=== PATIENT | male | born 1985 | race Caucasian/White ===

== ENCOUNTER 2021-04-25 18:53 | Observation (INO) | payer BC ==
[~2021-04-25] VITALS: Ht 175.3 cm; Wt 77.3 kg
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
[2021-04-25 20:03] LABS: BASOPHILS 0.2 % (0-2); EOSINOPHILS 0.1 % (0-7); HEMATOCRIT 42.3 % (42.0-54.0); LYMPHOCYTES 6.5 % (15-50); MCH 27.9 pg (26.0-34.0); MCHC 33.1 g/dL (31.0-37.0); MCV 84.2 fL (80.0-100.0); MONOCYTES 6.4 % (2-11); NEUTROPHILS 86.8 % (40-80); PLATELET COUNT 234 10x3/uL (130-400); RBC 5.02 10x6/uL (4.20-6.10); RDW 14.1 % (11.5-14.5); WBC 14.6 10x3/uL (4.8-10.8)
[2021-04-25 20:14] LABS: APTT 26.6 SECONDS (22.8-39.4); INR 1.26 (0.85-1.17); PROTIME 14.6 SECONDS (11.6-15.0)
[2021-04-25 20:15] LABS: CALC OSMOLALITY 283 mosm/kg (275-300); CALCIUM 8.8 mg/dL (8.5-10.1); CHLORIDE - SERUM 105 mmol/L (98-107); CREATININE - SERUM 1.1 mg/dL (0.6-1.3); GLUCOSE 101 mg/dL (74-106); POTASSIUM - SERUM 3.5 mmol/L (3.5-5.1); SODIUM 141 mmol/L (136-145); UREA NITROGEN 20 mg/dL (7-18); eGFR NON AFRICAN AMERICAN 82 mL/min (90-120)
[2021-04-25 20:20] LABS: ALBUMIN 4.3 g/dL (3.4-5.0); ALKALINE PHOSPHATASE 72 U/L (30-120); ALT (SGPT) 46 U/L (10-68); BILIRUBIN - TOTAL 0.83 mg/dL (0.2-1.3); LIPASE 93 U/L (73-393)
[2021-04-25 20:31] LABS: BILIRUBIN NEGATIVE (NEGATIVE); KETONE NEGATIVE mg/dL (< 1+); NITRITE NEGATIVE (NEGATIVE); PH 5.5 (5.0-8.0); UROBILINOGEN NORMAL mg/dL (< 2)
[2021-04-25 21:00] VITALS: BP 120/65
[2021-04-26] VITALS (11 sets, daily range): BP systolic 102–153; BP diastolic 54–113; Ht 175.3 cm; Wt 77.3 kg
[2021-04-26 04:19] LABS: BASOPHILS 0.4 % (0-2); EOSINOPHILS 0 % (0-7); HEMATOCRIT 42.2 % (42.0-54.0); HEMOGLOBIN 13.9 g/dL (13.5-17.5); LYMPHOCYTES 6.4 % (15-50); MCH 27.7 pg (26.0-34.0); MCV 84.1 fL (80.0-100.0); MEAN PLATELET VOLUME 8.1 fL (7.4-10.4); MONOCYTES 6.6 % (2-11); NEUTROPHILS 86.6 % (40-80); PLATELET COUNT 251 10x3/uL (130-400); RBC 5.02 10x6/uL (4.20-6.10); RDW 14.1 % (11.5-14.5); WBC 12.1 10x3/uL (4.8-10.8)
[2021-04-26 04:29] LABS: INR 1.21 (0.85-1.17); PROTIME 14.2 SECONDS (11.6-15.0)
[2021-04-26 04:35] LABS: CALC OSMOLALITY 288 mosm/kg (275-300); CALCIUM 8.5 mg/dL (8.5-10.1); CARBON DIOXIDE 24.8 mmol/L (21.0-32.0); CHLORIDE - SERUM 106 mmol/L (98-107); CREATININE - SERUM 1.1 mg/dL (0.6-1.3); GLUCOSE 147 mg/dL (74-106); MAGNESIUM - SERUM 1.8 mg/dL (1.8-2.4); PHOSPHOROUS 3.2 mg/dL (2.5-4.9); POTASSIUM - SERUM 3.9 mmol/L (3.5-5.1); SODIUM 142 mmol/L (136-145); UREA NITROGEN 21 mg/dL (7-18); eGFR NON AFRICAN AMERICAN 82 mL/min (90-120)
--- NOTE | 2021-04-26 06:39 | NUR ---
PT C/O HEADACHE AND STATES IT HAS BEEN WORSENING ALL NIGHT. DR. BRASWELL NOTIFIED AND ORDER OBTAINED TO RESCAN HEAD.
--- NOTE | 2021-04-26 08:40 | NUR ---
CONSENT FOR PROCEDURE, ANESTHESIA AND BLOOD TRANSFUSION SIGNED AND WITNESSED. C/O LEFT ANKLE PAIN 06/21. MEDICATED WITH DEMEROL 25MG IVP. PATIENT REFUSED FULL 50MG DOSE.
--- NOTE | 2021-04-26 11:15 | NUR ---
PRE-OP MEDS GIVEN. TO OR VIA STRETCHER WITH OR STAFF AND .
--- NOTE | 2021-04-26 15:35 | MORECARE ---
CASE MANAGEMENT DISCHARGE SUMMARY PATIENT: MALIKA JOHNSON UNIT: [id number] ADM DATE: 04/25/21 AGE: 35 : 87 SEX: M ROOM/BED: D.2233 AUTHOR: ANNA CHAPA PHYSICIAN: REFERRING PHYSICIAN: BRANDO BRASWELL MD DATE OF SERVICE: 04/26/21 Case Management Discharge Planning Summary COMMENTS ENTERED DATE: 04/26/21 15:31 CT COMMENT TYPE: Discharge Planning REVIEWER: Meek Dior Telephone conversation with patient's spouse, Ladan Johnson, at 1524 on 26 April 2021 to complete DC plan and needs. Mrs. Johnson stated that their home is safe and has electricity and running water. Mrs. Johnson stated that she has no problems paying for medications and she fills her medications at [facility] in [place], [place]. Mrs. Johnson stated that the patient's primary care physician is Dr. Rodriguez. At discharge, the patient plans to return Home and feels this is a safe discharge. CM discussed availability of home health, rehab services, and medical equipment. Mrs. Johnson declined HHS, SNF, IPR, and DME. Mrs. Johnson voiced no other needs at this time and is satisfied with DC plan. Transportation provider at discharge will be with Mrs. Johnson. CM will continue to follow and will assist as needed with dc plans/needs. DCP REVIEW SUMMARY ANTICIPATED D/C DATE: EXPECTED LOS : CASE STATUS: DCP Initiated INITIAL REVIEW: 04/25/2021 INITIAL REVIEWER: Meek Dior FINAL DISCHARGE DISPOSITION: : FINAL REVIEWER: FINAL REVIEW DATE: DCP Focus Questions & Answers DCP Evaluation QUESTION: ANSWER Patient gives permission to discuss discharge plans with: (name, relationship and number) : spouse, Ladan Johnson, Patient's ability to cope with chronic illness : d. No chronic illness Patient's current cognitive status: : *Oriented to person, place, situation, time and present Family / Caregiver's ability to cope with chronic illness: : a. Adequate (ability to meet patient's medical needs, ensures patient attends medical appts.) Patient and/or caregiver agree upon recommended discharge plan? : Yes Physical Status: : Independent with ADL's Family / Caregiver's ability to cope with chronic illness: : a. Adequate (ability to meet patient's medical needs, ensures patient attends medical appts.) Functional screen assessment: : Basic needs can adequately be met by self Does the patient have the ability to pay for or attain post discharge needs / services? : Yes Living Arrangements: : Home with Spouse/Significant Other Is there a likelihood that the patient will require additional services to return to the preadmission environment? : No Equipment needed for post hospitalization: : None Baseline cognitive status: : *Oriented to person, place, situation, time and present Patient with capacity for self-care or can be cared for in same environment as prior to hospitalization? : Yes Physical environment modification needed / anticipated for discharge: : No Medication Management: : Patient states can afford medications Medication Management: : Patient states can read and understand medication labels Pharmacy name(s): : [facility] Does Patient have transportation to get home and to follow-up medical appointments when discharged from the hospital? : Yes Would patient like to participate in any Care Coordination programs (if applicable): : Not applicable Does the patient have electricity at home? : Yes Does the patient have running water in their house? : Yes Equipment in use: : None Mental health screen: : No mental health history DCP Re-evaluation QUESTION: ANSWER Would patient like to participate in any Care Coordination programs (if applicable): : Not applicable PATIENT: MALIKA JOHNSON ENCOUNTER: [id number] MEDICAL RECORD#: [id number] ADMISSION DATE: 04/25/2021 DISCHARGE DATE: ATTENDING MD: BRANDO GARVEY : AGE: 35 MARITAL STATUS: M DC PLAN ID: [id number] FACILITY: [facility] PRINTED ON: 04/26/21 15:35 CT All edits/amendments must be made on the electronic document DICTATION DATE: 04/26/211534 JAVA DEVELOPER ANALYST: EDWARD 04/26/211534 RPT#: [id number] DC DATE: STATUS: ADM IN [facility] [address] [place] [address] END OF REPORT
--- NOTE | 2021-04-26 18:00 | MORECARE ---
CASE MANAGEMENT DISCHARGE SUMMARY PATIENT: MALIKA JOHNSON UNIT: [id number] ADM DATE: 04/25/21 AGE: 35 : 87 SEX: M ROOM/BED: D.2233 AUTHOR: ANNA CHAPA PHYSICIAN: REFERRING PHYSICIAN: BRANDO BRASWELL MD DATE OF SERVICE: 04/26/21 Case Management Discharge Planning Summary COMMENTS ENTERED DATE: 04/26/21 15:31 CT COMMENT TYPE: Discharge Planning REVIEWER: Meek Dior Telephone conversation with patient's spouse, Ladan Johnson, at 1524 on 26 April 2021 to complete DC plan and needs. Mrs. Johnson stated that their home is safe and has electricity and running water. Mrs. Johnson stated that she has no problems paying for medications and she fills her medications at [facility] in [place], [place]. Mrs. Johnson stated that the patient's primary care physician is Dr. Rodriguez. At discharge, the patient plans to return Home and feels this is a safe discharge. CM discussed availability of home health, rehab services, and medical equipment. Mrs. Johnson declined HHS, SNF, IPR, and DME. Mrs. Johnson voiced no other needs at this time and is satisfied with DC plan. Transportation provider at discharge will be with Mrs. Johnosn. CM will continue to follow and will assist as needed with dc plans/needs. Appended by Meek Dior on 04/26/2021 17:53 CDT: CM spoke with Mrs. Johnson regarding further needs. Mrs. Johnson stated that she spoke with the surgeon and feels that she will need a wheelchair for her at discharge. Mrs. Johnson stated that she thinks her mother has one that they can use but will contact CM department early tomorrow if one is needed. CM informed the Mrs. Johnson that Wheelchairs require medical necessity verbiage that will need to be coordinated with the surgeon, so early contact with CM department would be helpful. CM will continue to follow and will assist as needed with dc plans/needs. DCP REVIEW SUMMARY ANTICIPATED D/C DATE: EXPECTED LOS : CASE STATUS: DCP Initiated INITIAL REVIEW: 04/25/2021 INITIAL REVIEWER: Meek Dior FINAL DISCHARGE DISPOSITION: : FINAL REVIEWER: FINAL REVIEW DATE: TNP Focus Questions & Answers DCP Evaluation QUESTION: ANSWER Patient gives permission to discuss discharge plans with: (name, relationship and number) : spouse, Ladan Johnson, Patient's ability to cope with chronic illness : d. No chronic illness Patient's current cognitive status: : *Oriented to person, place, situation, time and present Family / Caregiver's ability to cope with chronic illness: : a. Adequate (ability to meet patient's medical needs, ensures patient attends medical appts.) Patient and/or caregiver agree upon recommended discharge plan? : Yes Physical Status: : Independent with ADL's Family / Caregiver's ability to cope with chronic illness: : a. Adequate (ability to meet patient's medical needs, ensures patient attends medical appts.) Functional screen assessment: : Basic needs can adequately be met by self Does the patient have the ability to pay for or attain post discharge needs / services? : Yes Living Arrangements: : Home with Spouse/Significant Other Is there a likelihood that the patient will require additional services to return to the preadmission environment? : No Equipment needed for post hospitalization: : None Baseline cognitive status: : *Oriented to person, place, situation, time and present Patient with capacity for self-care or can be cared for in same environment as prior to hospitalization? : Yes Physical environment modification needed / anticipated for discharge: : No Medication Management: : Patient states can afford medications Medication Management: : Patient states can read and understand medication labels Pharmacy name(s): : [facility] Does Patient have transportation to get home and to follow-up medical appointments when discharged from the hospital? : Yes Would patient like to participate in any Care Coordination programs (if applicable): : Not applicable Does the patient have electricity at home? : Yes Does the patient have running water in their house? : Yes Equipment in use: : None Mental health screen: : No mental health history DCP Re-evaluation QUESTION: ANSWER Would patient like to participate in any Care Coordination programs (if applicable): : Not applicable PATIENT: MALIKA JOHNSON ENCOUNTER: [id number] MEDICAL RECORD#: [id number] ADMISSION DATE: 04/25/2021 DISCHARGE DATE: ATTENDING MD: BRANDO GARVEY : AGE: 35 MARITAL STATUS: M DC PLAN ID: [id number] FACILITY: [facility] PRINTED ON: 04/26/21 18:00 CT All edits/amendments must be made on the electronic document DICTATION DATE: 04/26/211799 WAREHOUSE UNLOADER: EDWARD 04/26/211799 RPT#: [id number] DC DATE: STATUS: ADM IN [facility] [address] [place] [address] END OF REPORT
--- NOTE | 2021-04-26 18:30 | NUR ---
ATE MOST OF SUPPER. DENIES NEEDS. VSS. NO CHANGES NOTED. AT BEDSIDE.
--- NOTE | 2021-04-26 19:45 | MORECARE ---
CASE MANAGEMENT DISCHARGE SUMMARY PATIENT: MALIKA JOHNSON UNIT: [id number] ADM DATE: 04/25/21 AGE: 35 : 87 SEX: M ROOM/BED: D.2233 AUTHOR: ANNA CHAPA PHYSICIAN: REFERRING PHYSICIAN: BRANDO BRASWELL MD DATE OF SERVICE: 04/26/21 Case Management Discharge Planning Summary COMMENTS ENTERED DATE: 04/26/21 15:31 CT COMMENT TYPE: Discharge Planning REVIEWER: Meek Dior Telephone conversation with patient's spouse, Ladan Johnson, at 1524 on 26 April 2021 to complete DC plan and needs. Mrs. Johnson stated that their home is safe and has electricity and running water. Mrs. Johnson stated that she has no problems paying for medications and she fills her medications at [facility] in [place], [place]. Mrs. Johnson stated that the patient's primary care physician is Dr. Rodriguez. At discharge, the patient plans to return Home and feels this is a safe discharge. CM discussed availability of home health, rehab services, and medical equipment. Mrs. Johnson declined HHS, SNF, IPR, and DME. Mrs. Johnson voiced no other needs at this time and is satisfied with DC plan. Transportation provider at discharge will be with Mrs. Johnson. CM will continue to follow and will assist as needed with dc plans/needs. Appended by Meek Dior on 04/26/2021 17:53 CDT: CM spoke with Mrs. Johnson regarding further needs. Mrs. Johnson stated that she spoke with the surgeon and feels that she will need a wheelchair for her at discharge. Mrs. Johnson stated that she thinks her mother has one that they can use but will contact CM department early tomorrow if one is needed. CM informed the Mrs. Johnson that Wheelchairs require medical necessity verbiage that will need to be coordinated with the surgeon, so early contact with CM department would be helpful. CM will continue to follow and will assist as needed with dc plans/needs. DCP REVIEW SUMMARY ANTICIPATED D/C DATE: EXPECTED LOS : CASE STATUS: DCP Initiated INITIAL REVIEW: 04/25/2021 INITIAL REVIEWER: Meek Dior FINAL DISCHARGE DISPOSITION: : FINAL REVIEWER: FINAL REVIEW DATE: WYP Focus Questions & Answers DCP Evaluation QUESTION: ANSWER Patient gives permission to discuss discharge plans with: (name, relationship and number) : spouse, Ladan Johnson, Patient's ability to cope with chronic illness : d. No chronic illness Patient's current cognitive status: : *Oriented to person, place, situation, time and present Family / Caregiver's ability to cope with chronic illness: : a. Adequate (ability to meet patient's medical needs, ensures patient attends medical appts.) Patient and/or caregiver agree upon recommended discharge plan? : Yes Physical Status: : Independent with ADL's Family / Caregiver's ability to cope with chronic illness: : a. Adequate (ability to meet patient's medical needs, ensures patient attends medical appts.) Functional screen assessment: : Basic needs can adequately be met by self Does the patient have the ability to pay for or attain post discharge needs / services? : Yes Living Arrangements: : Home with Spouse/Significant Other Is there a likelihood that the patient will require additional services to return to the preadmission environment? : No Equipment needed for post hospitalization: : None Baseline cognitive status: : *Oriented to person, place, situation, time and present Patient with capacity for self-care or can be cared for in same environment as prior to hospitalization? : Yes Physical environment modification needed / anticipated for discharge: : No Medication Management: : Patient states can afford medications Medication Management: : Patient states can read and understand medication labels Pharmacy name(s): : [email or web address] Does Patient have transportation to get home and to follow-up medical appointments when discharged from the hospital? : Yes Would patient like to participate in any Care Coordination programs (if applicable): : Not applicable Does the patient have electricity at home? : Yes Does the patient have running water in their house? : Yes Equipment in use: : None Mental health screen: : No mental health history DCP Re-evaluation QUESTION: ANSWER Would patient like to participate in any Care Coordination programs (if applicable): : Not applicable PATIENT: MALIKA JOHNSON ENCOUNTER: [id number] MEDICAL RECORD#: [id number] ADMISSION DATE: 04/25/2021 DISCHARGE DATE: ATTENDING MD: BRANDO GARVEY : AGE: 35 MARITAL STATUS: M DC PLAN ID: [id number] FACILITY: [facility] PRINTED ON: 04/26/21 19:44 CT All edits/amendments must be made on the electronic document DICTATION DATE: 04/26/211943 PACKING MACHINE TENDER: EDWARD 04/26/211943 RPT#: [id number] DC DATE: STATUS: ADM IN [facility] [address] [place] [address] END OF REPORT
--- NOTE | 2021-04-26 20:00 | NUR ---
ALERT RESTING IN BED, REPORTS NUMBNESS TO RIGHT FOOT, TOES PINK AND WARM, CHARLINE WRAP CAST IN PLACE ELEVATED ON PILLOWS, SEE SHIFT ASSESSMENT, CALL LIGHT IN REACH
[2021-04-27] VITALS: BP 114/53
[2021-04-27 04:00] VITALS: BP 122/78
[2021-04-27 06:13] LABS: HEMATOCRIT 37.6 % (42.0-54.0); HEMOGLOBIN 12.4 g/dL (13.5-17.5); MCH 28.2 pg (26.0-34.0); MCHC 32.9 g/dL (31.0-37.0); MCV 85.6 fL (80.0-100.0); MEAN PLATELET VOLUME 8.4 fL (7.4-10.4); RBC 4.4 10x6/uL (4.20-6.10); RDW 14.2 % (11.5-14.5); WBC 10.2 10x3/uL (4.8-10.8)
[2021-04-27 08:06] VITALS: BP 110/49
--- NOTE | 2021-04-27 08:20 | NUR ---
PT LYING IN BED. STATED PAIN IN BETTER. IV CDI. ALL NEEDS MET AT THIS TIME. CLWR.
[2021-04-27 11:05] LABS: UDS - AMPHET NEGATIVE QUAL (NEGATIVE); UDS - BARB NEGATIVE QUAL (NEGATIVE); UDS - BENZO POSITIVE QUAL (NEGATIVE); UDS - COCAINE NEGATIVE QUAL (NEGATIVE); UDS - OPIATE POSITIVE QUAL (NEGATIVE); UDS - PCP NEGATIVE QUAL (NEGATIVE); UDS - THC NEGATIVE QUAL (NEGATIVE)
[2021-04-27 12:36] VITALS: BP 125/70
--- NOTE | 2021-04-27 14:27 | NUR ---
PT SITTING IN CHAIR AT BEDSIDE. REQUESTED TO BE PUT BACK IN BED. NOW RESTING IN BED. IV CDI, CLWR.
--- NOTE | 2021-04-27 15:30 | MORECARE ---
CASE MANAGEMENT DISCHARGE SUMMARY PATIENT: MALIKA JOHNSON UNIT: [id number] ADM DATE: 04/25/21 AGE: 35 : 89 SEX: M ROOM/BED: D.2233 AUTHOR: SAMMI,DOC PHYSICIAN: REFERRING PHYSICIAN: BRANDO BRASWELL MD DATE OF SERVICE: 04/27/21 Case Management Discharge Planning Summary COMMENTS ENTERED DATE: 04/27/21 14:52 CT COMMENT TYPE: Discharge Planning REVIEWER: Concha Yousif CM SPOKE WITH PATIENT AND FAMILY LALO SIGNED [facility] IN [facility]. PATIENT STATES THAT HE DOESN'T WANT TO WAIT FOR DME TO BE DELIVERED. IF IT ISN'T HERE BEFORE HIS D/C PAPERS THEN HE WILL PICK IT UP IN [facility]. CM FAXED RECORDS TO [facility] AND CALLED REGARDING DELIVERY. ENTERED DATE: 04/26/21 15:31 CT COMMENT TYPE: Discharge Planning REVIEWER: Meek Dior Telephone conversation with patient's spouse, Ladan Johnson, at 1524 on 26 April 2021 to complete DC plan and needs. Mrs. Johnson stated that their home is safe and has electricity and running water. Mrs. Johnson stated that she has no problems paying for medications and she fills her medications at [facility] in [place], [place]. Mrs. Johnson stated that the patient's primary care physician is Dr. Rodriguez. At discharge, the patient plans to return Home and feels this is a safe discharge. CM discussed availability of home health, rehab services, and medical equipment. Mrs. Johnson declined HHS, SNF, IPR, and DME. Mrs. Johnson voiced no other needs at this time and is satisfied with DC plan. Transportation provider at discharge will be with Mrs. Johnson. CM will continue to follow and will assist as needed with dc plans/needs. Appended by Meek Dior on 04/26/2021 17:53 CDT: CM spoke with Mrs. Johnson regarding further needs. Mrs. Johnson stated that she spoke with the surgeon and feels that she will need a wheelchair for her at discharge. Mrs. Johnson stated that she thinks her mother has one that they can use but will contact CM department early tomorrow if one is needed. CM informed the Mrs. Johnson that Wheelchairs require medical necessity verbiage that will need to be coordinated with the surgeon, so early contact with CM department would be helpful. CM will continue to follow and will assist as needed with dc plans/needs. DCP REVIEW SUMMARY ANTICIPATED D/C DATE: EXPECTED LOS : CASE STATUS: DCP Initiated INITIAL REVIEW: 04/25/2021 INITIAL REVIEWER: Meek Dior FINAL DISCHARGE DISPOSITION: : FINAL REVIEWER: FINAL REVIEW DATE: DCP Focus Questions & Answers DCP Evaluation QUESTION: ANSWER Patient and/or caregiver agree upon recommended discharge plan? : Yes Family / Caregiver's ability to cope with chronic illness: : a. Adequate (ability to meet patient's medical needs, ensures patient attends medical appts.) Patient's current cognitive status: : *Oriented to person, place, situation, time and present Patient's ability to cope with chronic illness : d. No chronic illness Patient gives permission to discuss discharge plans with: (name, relationship and number) : spouse, Ladan Johnson, Does the patient have the ability to pay for or attain post discharge needs / services? : Yes Functional screen assessment: : Basic needs can adequately be met by self Family / Caregiver's ability to cope with chronic illness: : a. Adequate (ability to meet patient's medical needs, ensures patient attends medical appts.) Physical Status: : Independent with ADL's Equipment needed for post hospitalization: : None Is there a likelihood that the patient will require additional services to return to the preadmission environment? : No Living Arrangements: : Home with Spouse/Significant Other Patient with capacity for self-care or can be cared for in same environment as prior to hospitalization? : Yes Baseline cognitive status: : *Oriented to person, place, situation, time and present Physical environment modification needed / anticipated for discharge: : No Medication Management: : Patient states can read and understand medication labels Medication Management: : Patient states can afford medications Pharmacy name(s): : [facility] Does Patient have transportation to get home and to follow-up medical appointments when discharged from the hospital? : Yes Would patient like to participate in any Care Coordination programs (if applicable): : Not applicable Does the patient have electricity at home? : Yes Does the patient have running water in their house? : Yes Equipment in use: : None Mental health screen: : No mental health history DCP Re-evaluation QUESTION: ANSWER Would patient like to participate in any Care Coordination programs (if applicable): : Not applicable PATIENT: MALIKA JOHNSON ENCOUNTER: [id number] MEDICAL RECORD#: [id number] ADMISSION DATE: 04/25/2021 DISCHARGE DATE: ATTENDING MD: BRANDO GARVEY : AGE: 35 MARITAL STATUS: M DC PLAN ID: [id number] FACILITY: [facility] PRINTED ON: 04/27/21 15:30 CT All edits/amendments must be made on the electronic document DICTATION DATE: 04/27/211529 RN DERMATOLOGY: EDWARD 04/27/211529 RPT#: [id number] DC DATE: STATUS: ADM IN [facility] [address] [place] [address] END OF REPORT
--- NOTE | 2021-04-27 17:06 | MORECARE ---
CASE MANAGEMENT DISCHARGE SUMMARY PATIENT: MALIKA JOHNSON UNIT: [id number] ADM DATE: 04/25/21 AGE: 35 : 89 SEX: M ROOM/BED: D.2233 AUTHOR: SAMMI,DOC PHYSICIAN: REFERRING PHYSICIAN: BRANDO BRASWELL MD DATE OF SERVICE: 04/27/21 Case Management Discharge Planning Summary COMMENTS ENTERED DATE: 04/27/21 14:52 CT COMMENT TYPE: Discharge Planning REVIEWER: Concha Yousif CM SPOKE WITH PATIENT AND FAMILY LALO SIGNED [facility]. PATIENT STATES THAT HE DOESN'T WANT TO WAIT FOR DME TO BE DELIVERED. IF IT ISN'T HERE BEFORE HIS D/C PAPERS THEN HE WILL PICK IT UP IN [facility]. CM FAXED RECORDS TO [facility] AND CALLED REGARDING DELIVERY. ENTERED DATE: 04/26/21 15:31 CT COMMENT TYPE: Discharge Planning REVIEWER: Meek Dior Telephone conversation with patient's spouse, Ladan Johnson, at 1524 on 26 April 2021 to complete DC plan and needs. Mrs. Johnson stated that their home is safe and has electricity and running water. Mrs. Johnson stated that she has no problems paying for medications and she fills her medications at [facility] in [place], [place]. Mrs. Johnson stated that the patient's primary care physician is Dr. Rodriguez. At discharge, the patient plans to return Home and feels this is a safe discharge. CM discussed availability of home health, rehab services, and medical equipment. Mrs. Johnson declined HHS, SNF, IPR, and DME. Mrs. Johnson voiced no other needs at this time and is satisfied with DC plan. Transportation provider at discharge will be with Mrs. Johnson. CM will continue to follow and will assist as needed with dc plans/needs. Appended by Meek Dior on 04/26/2021 17:53 CDT: CM spoke with Mrs. Johnson regarding further needs. Mrs. Johnson stated that she spoke with the surgeon and feels that she will need a wheelchair for her at discharge. Mrs. Johnson stated that she thinks her mother has one that they can use but will contact CM department early tomorrow if one is needed. CM informed the Mrs. Johnson that Wheelchairs require medical necessity verbiage that will need to be coordinated with the surgeon, so early contact with CM department would be helpful. CM will continue to follow and will assist as needed with dc plans/needs. DCP REVIEW SUMMARY ANTICIPATED D/C DATE: EXPECTED LOS : CASE STATUS: DCP Initiated INITIAL REVIEW: 04/25/2021 INITIAL REVIEWER: Meek Dior FINAL DISCHARGE DISPOSITION: : FINAL REVIEWER: FINAL REVIEW DATE: DCP Focus Questions & Answers DCP Evaluation QUESTION: ANSWER Patient and/or caregiver agree upon recommended discharge plan? : Yes Family / Caregiver's ability to cope with chronic illness: : a. Adequate (ability to meet patient's medical needs, ensures patient attends medical appts.) Patient's current cognitive status: : *Oriented to person, place, situation, time and present Patient's ability to cope with chronic illness : d. No chronic illness Patient gives permission to discuss discharge plans with: (name, relationship and number) : spouse, Ladan Johnson, Does the patient have the ability to pay for or attain post discharge needs / services? : Yes Functional screen assessment: : Basic needs can adequately be met by self Family / Caregiver's ability to cope with chronic illness: : a. Adequate (ability to meet patient's medical needs, ensures patient attends medical appts.) Physical Status: : Independent with ADL's Equipment needed for post hospitalization: : None Is there a likelihood that the patient will require additional services to return to the preadmission environment? : No Living Arrangements: : Home with Spouse/Significant Other Patient with capacity for self-care or can be cared for in same environment as prior to hospitalization? : Yes Baseline cognitive status: : *Oriented to person, place, situation, time and present Physical environment modification needed / anticipated for discharge: : No Medication Management: : Patient states can read and understand medication labels Medication Management: : Patient states can afford medications Pharmacy name(s): : [facility] Does Patient have transportation to get home and to follow-up medical appointments when discharged from the hospital? : Yes Would patient like to participate in any Care Coordination programs (if applicable): : Not applicable Does the patient have electricity at home? : Yes Does the patient have running water in their house? : Yes Equipment in use: : None Mental health screen: : No mental health history DCP Re-evaluation QUESTION: ANSWER Would patient like to participate in any Care Coordination programs (if applicable): : Not applicable PATIENT: MALIKA JOHNSON ENCOUNTER: [id number] MEDICAL RECORD#: [id number] ADMISSION DATE: 04/25/2021 DISCHARGE DATE: 04/27/2021 ATTENDING MD: BRANDO GARVEY : AGE: 35 MARITAL STATUS: M DC PLAN ID: [id number] FACILITY: [facility] PRINTED ON: 04/27/21 17:06 CT All edits/amendments must be made on the electronic document DICTATION DATE: 04/27/211705 SIZE MIXER: EDWARD 04/27/211705 RPT#: [id number] DC DATE:04/27/21 STATUS: DIS IN [facility] [address] [place] [address] END OF REPORT
--- NOTE | 2021-04-28 17:04 | MORECARE ---
CASE MANAGEMENT DISCHARGE SUMMARY PATIENT: MALIKA JOHNSON UNIT: [id number] ADM DATE: 04/25/21 AGE: 35 : 89 SEX: M ROOM/BED: D.2233 AUTHOR: SAMMI,DOC PHYSICIAN: REFERRING PHYSICIAN: BRANDO BRASWELL MD DATE OF SERVICE: 04/28/21 Case Management Discharge Planning Summary COMMENTS ENTERED DATE: 04/27/21 14:52 CT COMMENT TYPE: Discharge Planning REVIEWER: Concha Yousif CM SPOKE WITH PATIENT AND FAMILY LALO SIGNED [facility] IN [facility]. PATIENT STATES THAT HE DOESN'T WANT TO WAIT FOR DME TO BE DELIVERED. IF IT ISN'T HERE BEFORE HIS D/C PAPERS THEN HE WILL PICK IT UP IN [facility]. CM FAXED RECORDS TO [facility] AND CALLED REGARDING DELIVERY. ENTERED DATE: 04/26/21 15:31 CT COMMENT TYPE: Discharge Planning REVIEWER: Meek Dior Telephone conversation with patient's spouse, Ladan Johnson, at 1524 on 26 April 2021 to complete DC plan and needs. Mrs. Johnson stated that their home is safe and has electricity and running water. Mrs. Johnson stated that she has no problems paying for medications and she fills her medications at [facility] in [place], [place]. Mrs. Johnson stated that the patient's primary care physician is Dr. Rodriguez. At discharge, the patient plans to return Home and feels this is a safe discharge. CM discussed availability of home health, rehab services, and medical equipment. Mrs. Johnson declined HHS, SNF, IPR, and DME. Mrs. Johnson voiced no other needs at this time and is satisfied with DC plan. Transportation provider at discharge will be with Mrs. Johnson. CM will continue to follow and will assist as needed with dc plans/needs. Appended by Meek Dior on 04/26/2021 17:53 CDT: CM spoke with Mrs. Johnson regarding further needs. Mrs. Johnson stated that she spoke with the surgeon and feels that she will need a wheelchair for her at discharge. Mrs. Johnson stated that she thinks her mother has one that they can use but will contact CM department early tomorrow if one is needed. CM informed the Mrs. Johnson that Wheelchairs require medical necessity verbiage that will need to be coordinated with the surgeon, so early contact with CM department would be helpful. CM will continue to follow and will assist as needed with dc plans/needs. DCP REVIEW SUMMARY ANTICIPATED D/C DATE: EXPECTED LOS : CASE STATUS: DCP Initiated INITIAL REVIEW: 04/25/2021 INITIAL REVIEWER: Meek Dior FINAL DISCHARGE DISPOSITION: : FINAL REVIEWER: FINAL REVIEW DATE: DCP Focus Questions & Answers DCP Evaluation QUESTION: ANSWER Patient and/or caregiver agree upon recommended discharge plan? : Yes Family / Caregiver's ability to cope with chronic illness: : a. Adequate (ability to meet patient's medical needs, ensures patient attends medical appts.) Patient's current cognitive status: : *Oriented to person, place, situation, time and present Patient's ability to cope with chronic illness : d. No chronic illness Patient gives permission to discuss discharge plans with: (name, relationship and number) : spouse, Ladan Johnson, Does the patient have the ability to pay for or attain post discharge needs / services? : Yes Functional screen assessment: : Basic needs can adequately be met by self Family / Caregiver's ability to cope with chronic illness: : a. Adequate (ability to meet patient's medical needs, ensures patient attends medical appts.) Physical Status: : Independent with ADL's Equipment needed for post hospitalization: : None Is there a likelihood that the patient will require additional services to return to the preadmission environment? : No Living Arrangements: : Home with Spouse/Significant Other Patient with capacity for self-care or can be cared for in same environment as prior to hospitalization? : Yes Baseline cognitive status: : *Oriented to person, place, situation, time and present Physical environment modification needed / anticipated for discharge: : No Medication Management: : Patient states can read and understand medication labels Medication Management: : Patient states can afford medications Pharmacy name(s): : [facility] Does Patient have transportation to get home and to follow-up medical appointments when discharged from the hospital? : Yes Would patient like to participate in any Care Coordination programs (if applicable): : Not applicable Does the patient have electricity at home? : Yes Does the patient have running water in their house? : Yes Equipment in use: : None Mental health screen: : No mental health history DCP Re-evaluation QUESTION: ANSWER Would patient like to participate in any Care Coordination programs (if applicable): : Not applicable PATIENT: MALIKA JOHNSON ENCOUNTER: [id number] MEDICAL RECORD#: [id number] ADMISSION DATE: 04/25/2021 DISCHARGE DATE: 04/27/2021 ATTENDING MD: BRANDO GARVEY : AGE: 35 MARITAL STATUS: M DC PLAN ID: [id number] FACILITY: [facility] PRINTED ON: 04/28/21 17:04 CT All edits/amendments must be made on the electronic document DICTATION DATE: 04/28/211703 TOBACCO CLASSER: EDWARD 04/28/211703 RPT#: [id number] DC DATE:04/27/21 STATUS: DIS IN [facility] [address] [place] [address] END OF REPORT
== END 2021-04-27 17:04 | disposition home or self-care (01) ==
LOC: D.ER 18:53 → D.EDHOLD 21:37 → D.MS 21:37 → D.EDHOLD 21:37 → OBSVTIME 21:38 → D.MS 04-26 15:30
PROVIDERS: Family Medicine; Orthopaedic Surgery; ADMIT Family Medicine; ATTEND Family Medicine
DX: S22.32XA Fracture of one rib, left side, initial encounter for closed fracture (principal); S32.9XXA Fracture of unspecified parts of lumbosacral spine and pelvis, initial encounter for closed fracture; V29.9XXA Motorcycle rider (driver) (passenger) injured in unspecified traffic accident, initial encounter; Y93.9 Activity, unspecified; Y92.9 Unspecified place or not applicable; S81.801A Unspecified open wound, right lower leg, initial encounter; S82.491A Other fracture of shaft of right fibula, initial encounter for closed fracture